=== PATIENT | male | born 1995 | race Caucasian/White ===

== ENCOUNTER 2021-10-03 14:07 | Emergency (ER) | payer BC, OTHER ==
[2021-10-03 14:50] LABS: ANION GAP 15.2 mmol/L (5-15); CHLORIDE,CL 106 mmol/L (98-107); SODIUM,NA 143 mmol/L (136-145)
[2021-10-03 15:25] LABS: PTT,PARTIAL THROMBOPLSTIN TIME 21.4 SEC (22.8-31.4)
== END 2021-10-03 14:33 ==
LOC: KA.ED 14:07
DX: S01.101A Unspecified open wound of right eyelid and periocular area, initial encounter (principal); S09.91XA Unspecified injury of ear, initial encounter; W17.89XA Other fall from one level to another, initial encounter
CPT/HCPCS: 36415; 70450; 71045; 72125; 80053; 85025; 85610; 85730; 99284; 99285-25; Q3014